=== PATIENT | male | born 1965 | race Caucasian/White ===

== ENCOUNTER 2017-01-26 14:18 | Emergency (ER) | payer MEDICAID ==
[2017-01-26 14:24] VITALS: RESP 18; TEMP 97.9
--- NOTE | 2017-01-26 15:57 | EDPHY ---
H & P Smoking Status: Former smoker Time Seen by Provider: 01/26/17 14:32 HPI/ROS: CHIEF COMPLAINT: Right ankle injury HISTORY OF PRESENT ILLNESS: 51-year-old male presents to the emergency department with injury to the right ankle. The patient was at home 2 days ago and stepped in a hole in the yd and somehow twisted his right foot and ankle. He has been having pain and swelling since that time. He has a previous right foot fracture injury. Denies any other trauma or injury. He did not hit his head or lose consciousness. ROS: Denies numbness or tingling in his toes, pain in his right calf, right knee or hip. (Kylah Santos) Past Medical/Surgical History: Previous right foot fracture, orthopedic surgery left wrist (Kylah Santos) Social History: (Kylah Santos) Physical Exam: On examination the patient has swelling noted diffusely to the right ankle. He has tenderness with palpation especially over the lateral malleolus. Nontender over the medial malleolus. No obvious ankle instability although this is difficult to test given swelling. Normal capillary refill. He does have ecchymosis noted both to the medial and lateral aspect of his foot. He has diffuse swelling to the foot as well however he has no pain with palpation over the metatarsals. He has limited dorsiflexion of the right ankle secondary to pain and swelling. His gait is not tested due to pain. Achilles tendon is intact. (Kylah Santos) Constitutional: Initial Vital Signs Temperature (C) 36.6 C 01/26/17 14:21 Heart Rate 89 01/26/17 14:21 Respiratory Rate 18 01/26/17 14:21 Blood Pressure 131/90 H 01/26/17 14:21 O2 Sat (%) 96 01/26/17 14:21 O2 Delivery Mode Room Air Allergies/Adverse Reactions: No Known Allergies Allergy (Verified 01/26/17 14:19) Home Medications: Medication Instructions Recorded Docusate Sodium [Colace 100 MG (*)] 100 mg PO TID #20 cap 08/23/14 Hydrocodone/APAP 5/325 [[place] 1 - 2 tab PO Q4-6PRN PRN #30 tab 08/23/14 5/325 (*)] oxyCODONE/APAP 5/325 [Percocet 1 - 2 tab PO Q4-6PRN PRN #30 tab 08/23/14325 (*)] Levothyroxine 01/26/17 Lipitor 01/26/17 Lisinopril 01/26/17 MDM/Departure - [facility] Imaging: I viewed and interpreted images myself - [facility] Imaging Results: Imaging Impressions Ankle X-Ray 01/26/17 14:53 Impression: Nondisplaced fracture through the inferior lateral malleolus with overlying soft tissue swelling and tibiotalar joint effusion. Foot X-Ray 01/26/17 14:53 Impression: Tibiotalar joint effusion. The nondisplaced fracture of the lateral malleolus is better visualized on the ankle images also obtained today. No other findings for acute fracture of the right foot. 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 (Kylah Santos) ED Course/Re-evaluation: 51-year-old male presents to the emergency department with right ankle injury. X-rays reveal distal fibular fracture. He was placed in Galvan boot and given orthopedic referral. Patient was given strict instructions to elevate his leg as much as possible to help relieve swelling. He was given a prescription for 10. Percocet per his request to help him sleep. (Kylah Santos) - Depart Disposition: Home, Routine, Self-Care Clinical Impression: Closed right ankle fracture Qualifiers: Encounter type: initial encounter Qualified Code(s): S82.891A - Other fracture of right lower leg, initial encounter for closed fracture Condition: Good Instructions: Ankle Fracture (ED) Additional Instructions: Galvan boot for comfort and support. Weightbear as tolerated, use crutches. Ibuprofen 600 mg every 8 hours as needed for pain. Follow up with orthopedic surgeon in 1 week to recheck. Elevate your foot as much as possible to help relieve swelling. Referrals: Edgar Ruggiero MD [Medical Doctor] - 5-7 days, call for appt. (Orthopedic surgeon on-call) Gera Hinojosa MD [Medical Doctor] - As per Instructions
--- NOTE | 2017-01-26 15:57 | EDPHY ---
H & P Smoking Status: Former smoker Time Seen by Provider: 01/26/17 14:32 HPI/ROS: CHIEF COMPLAINT: Right ankle injury HISTORY OF PRESENT ILLNESS: 51-year-old male presents to the emergency department with injury to the right ankle. The patient was at home 2 days ago and stepped in a hole in the yd and somehow twisted his right foot and ankle. He has been having pain and swelling since that time. He has a previous right foot fracture injury. Denies any other trauma or injury. He did not hit his head or lose consciousness. ROS: Denies numbness or tingling in his toes, pain in his right calf, right knee or hip. (Kylah Santos) Past Medical/Surgical History: Previous right foot fracture, orthopedic surgery left wrist (Kylah Santos) Social History: (Kylah Santos) Physical Exam: On examination the patient has swelling noted diffusely to the right ankle. He has tenderness with palpation especially over the lateral malleolus. Nontender over the medial malleolus. No obvious ankle instability although this is difficult to test given swelling. Normal capillary refill. He does have ecchymosis noted both to the medial and lateral aspect of his foot. He has diffuse swelling to the foot as well however he has no pain with palpation over the metatarsals. He has limited dorsiflexion of the right ankle secondary to pain and swelling. His gait is not tested due to pain. Achilles tendon is intact. (Kylah Santos) Constitutional: Initial Vital Signs Temperature (C) 36.6 C 01/26/17 14:21 Heart Rate 89 01/26/17 14:21 Respiratory Rate 18 01/26/17 14:21 Blood Pressure 131/90 H 01/26/17 14:21 O2 Sat (%) 96 01/26/17 14:21 O2 Delivery Mode Room Air Allergies/Adverse Reactions: No Known Allergies Allergy (Verified 01/26/17 14:19) Home Medications: Medication Instructions Recorded Docusate Sodium [Colace 100 MG (*)] 100 mg PO TID #20 cap 08/23/14 Hydrocodone/APAP 5/325 [[place] 1 - 2 tab PO Q4-6PRN PRN #30 tab 08/23/14 5/325 (*)] oxyCODONE/APAP 5/325 [Percocet 1 - 2 tab PO Q4-6PRN PRN #30 tab 08/23/14325 (*)] Levothyroxine 01/26/17 Lipitor 01/26/17 Lisinopril 01/26/17 MDM/Departure - [facility] [place] Imaging: I viewed and interpreted images myself - [facility] [place] Imaging Results: Imaging Impressions Ankle X-Ray 01/26/17 14:53 Impression: Nondisplaced fracture through the inferior lateral malleolus with overlying soft tissue swelling and tibiotalar joint effusion. Foot X-Ray 01/26/17 14:53 Impression: Tibiotalar joint effusion. The nondisplaced fracture of the lateral malleolus is better visualized on the ankle images also obtained today. No other findings for acute fracture of the right foot. 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 (Kylah Santos) ED Course/Re-evaluation: 51-year-old male presents to the emergency department with right ankle injury. X-rays reveal distal fibular fracture. He was placed in Galvan boot and given orthopedic referral. Patient was given strict instructions to elevate his leg as much as possible to help relieve swelling. He was given a prescription for 10. Percocet per his request to help him sleep. (Kylah Santos) - Depart Disposition: Home, Routine, Self-Care Clinical Impression: Closed right ankle fracture Qualifiers: Encounter type: initial encounter Qualified Code(s): S82.891A - Other fracture of right lower leg, initial encounter for closed fracture Condition: Good Instructions: Ankle Fracture (ED) Additional Instructions: Galvan boot for comfort and support. Weightbear as tolerated, use crutches. Ibuprofen 600 mg every 8 hours as needed for pain. Follow up with orthopedic surgeon in 1 week to recheck. Elevate your foot as much as possible to help relieve swelling. Referrals: Edgar Ruggiero MD [Medical Doctor] - 5-7 days, call for appt. (Orthopedic surgeon on-call) Gera Hinojosa MD [Medical Doctor] - As per Instructions
--- NOTE | 2017-01-26 15:57 | EDPHY ---
H & P Smoking Status: Former smoker Time Seen by Provider: 01/26/17 14:32 HPI/ROS: CHIEF COMPLAINT: Right ankle injury HISTORY OF PRESENT ILLNESS: 51-year-old male presents to the emergency department with injury to the right ankle. The patient was at home 2 days ago and stepped in a hole in the yd and somehow twisted his right foot and ankle. He has been having pain and swelling since that time. He has a previous right foot fracture injury. Denies any other trauma or injury. He did not hit his head or lose consciousness. ROS: Denies numbness or tingling in his toes, pain in his right calf, right knee or hip. (Kylah Santos) Past Medical/Surgical History: Previous right foot fracture, orthopedic surgery left wrist (Kylah Santos) Social History: (Kylah Santos) Physical Exam: On examination the patient has swelling noted diffusely to the right ankle. He has tenderness with palpation especially over the lateral malleolus. Nontender over the medial malleolus. No obvious ankle instability although this is difficult to test given swelling. Normal capillary refill. He does have ecchymosis noted both to the medial and lateral aspect of his foot. He has diffuse swelling to the foot as well however he has no pain with palpation over the metatarsals. He has limited dorsiflexion of the right ankle secondary to pain and swelling. His gait is not tested due to pain. Achilles tendon is intact. (Kylah Santos) Constitutional: Initial Vital Signs Temperature (C) 36.6 C 01/26/17 14:21 Heart Rate 89 01/26/17 14:21 Respiratory Rate 18 01/26/17 14:21 Blood Pressure 131/90 H 01/26/17 14:21 O2 Sat (%) 96 01/26/17 14:21 O2 Delivery Mode Room Air Allergies/Adverse Reactions: No Known Allergies Allergy (Verified 01/26/17 14:19) Home Medications: Medication Instructions Recorded Docusate Sodium [Colace 100 MG (*)] 100 mg PO TID #20 cap 08/23/14 Hydrocodone/APAP 5/325 [[place] 1 - 2 tab PO Q4-6PRN PRN #30 tab 08/23/14 5/325 (*)] oxyCODONE/APAP 5/325 [Percocet 1 - 2 tab PO Q4-6PRN PRN #30 tab 08/23/14325 (*)] Levothyroxine 01/26/17 Lipitor 01/26/17 Lisinopril 01/26/17 MDM/Departure - [facility] Imaging: I viewed and interpreted images myself - [facility] Imaging Results: Imaging Impressions Ankle X-Ray 01/26/17 14:53 Impression: Nondisplaced fracture through the inferior lateral malleolus with overlying soft tissue swelling and tibiotalar joint effusion. Foot X-Ray 01/26/17 14:53 Impression: Tibiotalar joint effusion. The nondisplaced fracture of the lateral malleolus is better visualized on the ankle images also obtained today. No other findings for acute fracture of the right foot. 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 (Kylah Santos) ED Course/Re-evaluation: 51-year-old male presents to the emergency department with right ankle injury. X-rays reveal distal fibular fracture. He was placed in Galvan boot and given orthopedic referral. Patient was given strict instructions to elevate his leg as much as possible to help relieve swelling. He was given a prescription for 10. Percocet per his request to help him sleep. (Kylah Santos) - Depart Disposition: Home, Routine, Self-Care Clinical Impression: Closed right ankle fracture Qualifiers: Encounter type: initial encounter Qualified Code(s): S82.891A - Other fracture of right lower leg, initial encounter for closed fracture Condition: Good Instructions: Ankle Fracture (ED) Additional Instructions: Galvan boot for comfort and support. Weightbear as tolerated, use crutches. Ibuprofen 600 mg every 8 hours as needed for pain. Follow up with orthopedic surgeon in 1 week to recheck. Elevate your foot as much as possible to help relieve swelling. Referrals: Edgar Ruggiero MD [Medical Doctor] - 5-7 days, call for appt. (Orthopedic surgeon on-call) Gera Hinojosa MD [Medical Doctor] - As per Instructions
[2017-01-26 16:10] VITALS: BP 112/88; PULSE 85; O2SAT 94
== END 2017-01-26 16:10 | disposition home or self-care (01) ==
DX: S82.891A Other fracture of right lower leg, initial encounter for closed fracture (principal); Z87.891 Personal history of nicotine dependence; X58.XXXA Exposure to other specified factors, initial encounter
CPT/HCPCS: L4386

== ENCOUNTER 2017-01-27 15:47 | Emergency (ER) | payer MEDICAID ==
[2017-01-27 15:58] VITALS: BP 126/103; PULSE 87; RESP 16; TEMP 97.9; O2SAT 97
--- NOTE | 2017-01-27 16:29 | EDPHY ---
H & P Time Seen by Provider: 01/27/17 16:03 HPI/ROS: CHIEF COMPLAINT: Right ankle pain HISTORY OF PRESENT ILLNESS: Patient is a 51-year-old male who presents emergency department with right ankle pain. The patient was seen in the emergency department yesterday for the same. His pain is persistent. He describes it is moderate to severe. He has no numbness or tingling. He made an appointment to follow up with Dr. Ruggiero. Patient has been using his Arnulfo boot but no crutches. REVIEW OF SYSTEMS: Negative Past Medical/Surgical History: Noncontributory Smoking Status: Former smoker Physical Exam: General Appearance: Alert and no distress. Head: Pupils equal. Normal. Respiratory: No respiratory distress. Cardiac: regular rate and rhythm. Extremities: Mild swelling at the right ankle. There is also swelling inferior to the lateral malleolus and medial malleolus. The compartment is soft. Neurovascular intact distally. No cords or Homans sign Skin: No rashes or lesions. Neuro: Alert. Normal mood and affect. Constitutional: Initial Vital Signs Temperature (C) 36.6 C 01/27/17 15:56 Heart Rate 87 01/27/17 15:56 Respiratory Rate 16 01/27/17 15:56 Blood Pressure 126/103 H 01/27/17 15:56 O2 Sat (%) 97 01/27/17 15:56 O2 Delivery Mode Room Air Allergies/Adverse Reactions: No Known Allergies Allergy (Verified 01/27/17 15:55) Home Medications: Medication Instructions Recorded oxyCODONE/APAP 5/325 [Percocet 1 - 2 tab PO Q4-6PRN PRN #30 tab 08/23/14 5/325 (*)] Levothyroxine 01/26/17 Lisinopril 01/26/17 Ibuprofen 600 mg PO Q6 #15 tablet 01/27/17 oxyCODONE/APAP 5/325 [Percocet 1 - 2 tab PO Q4PRN PRN #11 tab 01/27/17 5/325 (*)] Medical Decision Making ED Course/Re-evaluation: In the emergency department I discussed possible etiologies with the patient. Patient was instructed uses Arnulfo boot. He was given crutches will be weight- bearing as tolerated. Patient will keep his follow-up with Dr. Ruggiero. He was given a prescription for Percocet. He was instructed use ibuprofen as well as the Percocet. Differential Diagnosis: My differential includes but is not limited to fracture, dislocation, sprain, contusion Departure - Departure Disposition: Home, Routine, Self-Care Clinical Impression: Closed right ankle fracture Condition: Good Instructions: Ankle Fracture (ED) Additional Instructions: Use your same some boot. Use the crutches for comfort. Keep your foot elevated as much as possible. Use both ibuprofen and Percocet for breakthrough pain. Referrals: Edgar Ruggiero MD [Medical Doctor] - 3-4 days, if not improved Prescriptions: Ibuprofen 600 mg PO Q6 #15 tablet oxyCODONE/APAP 5/325 [Percocet 5/325 (*)] 1 - 2 tab PO Q4PRN PRN #11 tab PRN Reason: For Moderate To Severe Pain
== END 2017-01-27 16:44 | disposition home or self-care (01) ==
DX: S82.891D Other fracture of right lower leg, subsequent encounter for closed fracture with routine healing (principal); Z87.891 Personal history of nicotine dependence; X58.XXXD Exposure to other specified factors, subsequent encounter

== ENCOUNTER 2018-06-27 11:15 | Day surgery (SDC) | payer MEDICAID ==
--- NOTE | 2018-06-27 11:56 | EDPHY ---
H & P Stated Complaint: bleeding hemorrhoids Time Seen by Provider: 06/27/18 11:25 HPI/ROS: CHIEF COMPLAINT: "I have a hemorrhoid" HISTORY OF PRESENT ILLNESS: 52-year-old male developed a thrombosed hemorrhoid which was initially seen by his primary care provider on Wednesday (today is Wednesday ). He had the thrombus excised at that time. He was then seen again Wednesday morning because of reaccumulation of clot. He had excision at that time as well.. He was then seen again Wednesday afternoon and had the area excised again. He develops continued symptoms in continued use accumulation of thrombus in blood. His primary care provider recommend he follow up with surgery today however due to insurance and mailing address issues was unable to be seen in the office and therefore told to go to the ER. Last po intake dinner last night PRIMARY CARE PROVIDER: REVIEW OF SYSTEMS: 10 systems reviewed and negative with the exception of the elements mentioned in the history of present illness PAST MEDICAL & SURGICAL HISTORY: No pertinent medical or surgical history SOCIAL HISTORY: Nonsmoker PHYSICAL EXAM (Prior to examination, patient consented to physical exam, hands were washed and my usual and customary physical exam procedures followed) 1) GENERAL: Well-developed, well-nourished, alert and oriented. Appears uncomfortable 2) HEAD: Normocephalic, atraumatic 3) HEENT: Pupils equal, round, reactive to light bilaterally. Sclera anicteric. 4) NECK: Full range of motion, no meningeal signs. 5) LUNGS: Clear auscultation bilaterally, no wheezes, no rhonchi, no retractions. 6) HEART: Regular rate and rhythm, no murmur, no heave, no gallop. 7) ABDOMEN: No guarding, no rebound, no focal tenderness,, 8) MUSCULOSKELETAL: Moving all extremities, no focal areas of tenderness, no obvious trauma. No peripheral edema or discoloration. 9) BACK: , no visual or palpable abnormality. 10) SKIN: No rash, no petechiae. 11) : At the 8:00 position the perianal region thrombosed hemorrhoid measuring 6 cm x 4 cm with incision noted. No active bleeding.. DIFFERENTIAL DIAGNOSIS: In no particular order including but not limited to thrombosed hemorrhoid, abscess, non thrombosed hemorrhoid - Personal History Current Tetanus/Diphtheria Vaccine: Yes Current Tetanus Diphtheria and Acellular Pertussis (TDAP): Yes Tetanus Vaccine Date: 2015 - Medical/Surgical History Hx Asthma: No Hx Chronic Respiratory Disease: No Hx Diabetes: No Hx Cardiac Disease: No Hx Renal Disease: No Hx Cirrhosis: No Hx Alcoholism: No Hx HIV/AIDS: No Hx Splenectomy or Spleen Trauma: No Other PMH: HYPERLIPIDEMIA, HTN, HYPOTHYROID. L WRIST SURGERY, NECK SURGERY, COLON CANCER - Social History Smoking Status: Former smoker Constitutional: Initial Vital Signs Temperature (C) 36.5 C 06/27/18 11:19 Heart Rate 88 06/27/18 11:19 Respiratory Rate 18 06/27/18 11:19 Blood Pressure 129/99 H 06/27/18 11:19 O2 Sat (%) 97 06/27/18 11:19 O2 Delivery Mode Room Air Allergies/Adverse Reactions: No Known Allergies Allergy (Verified 01/27/17 15:55) Home Medications: Medication Instructions Recorded oxyCODONE/APAP 5/325 [Percocet 1 - 2 tab PO Q4-6PRN PRN #30 tab 08/23/14 5/325 (*)] Levothyroxine 01/26/17 Lisinopril 01/26/17 Ibuprofen 600 mg PO Q6 #15 tablet 01/27/17 oxyCODONE/APAP 5/325 [Percocet 1 - 2 tab PO Q4PRN PRN #11 tab 01/27/17 5/325 (*)] Medical Decision Making ED Course/Re-evaluation: 12:03 p.m.: Consultation with Dr. Brooks will come to the ER to evaluate patient. Patient remains NPO since last night. 12:55 p.m.: Dr. Brooks has evaluated the patient, plan on taking the patient to the operating room for hemorrhoidectomy and then will plan discharge home. Care of patient under supervision of secondary supervising physician Dr Martinez with whom I discussed case. - Data Points Laboratory Results: Laboratory Results 06/27/18 13:15 06/27/18 13:15 06/27/18 06/27/18 06/27/18 13:15 13:15 13:15 WBC 5.83 10^3/uL 10^3/uL (3.80-9.50) RBC 5.54 10^6/uL 10^6/uL (4.40-6.38) Hgb 16.4 g/dL g/dL (13.7-17.5) Hct 48.5 % % (40.0-51.0) MCV 87.5 fL fL (81.5-99.8) MCH 29.6 pg pg (27.9-34.1) MCHC 33.8 g/dL g/dL (32.4-36.7) RDW 12.8 % % (11.5-15.2) Plt Count 238 10^3/uL 10^3/uL (150-400) MPV 9.7 fL fL (8.7-11.7) Neut % (Auto) 63.4 % % (39.3-74.2) Lymph % (Auto) 24.7 % % (15.0-45.0) [place] % (Auto) 6.5 % % (4.5-13.0) Eos % (Auto) 3.9 % % (0.6-7.6) Baso % (Auto) 1.2 % % (0.3-1.7) Nucleat RBC Rel Count 0.0 % % (0.0-0.2) Absolute Neuts (auto) 3.69 10^3/uL 10^3/uL (1.70-6.50) Absolute Lymphs (auto) 1.44 10^3/uL 10^3/uL (1.00-3.00) Absolute Monos (auto) 0.38 10^3/uL 10^3/uL (0.30-0.80) Absolute Eos (auto) 0.23 10^3/uL 10^3/uL (0.03-0.40) Absolute Basos (auto) 0.07 10^3/uL 10^3/uL (0.02-0.10) Absolute Nucleated RBC 0.00 10^3/uL 10^3/uL (0-0.01) Immature Gran % 0.3 % % (0.0-1.1) Immature Gran # 0.02 10^3/uL 10^3/uL (0.00-0.10) PT 11.8 SEC L SEC (12.0-15.0) INR 0.90 (0.83-1.16) APTT 27.6 SEC SEC (23.0-38.0) Sodium 141 mEq/L mEq/L (135-145) Potassium 4.1 mEq/L mEq/L (3.5-5.2) Chloride 107 mEq/L mEq/L (97-110) Carbon Dioxide 26 mEq/l mEq/l (22-31) Anion Gap 8 mEq/L mEq/L (6-14) BUN 12 mg/dL mg/dL (7-23) Creatinine 0.9 mg/dL mg/dL (0.7-1.3) Estimated GFR > 60 Glucose 88 mg/dL mg/dL (70-100) Calcium 9.6 mg/dL mg/dL (8.5-10.4) Medications Given: Discontinued Medications Sodium Chloride (Ns) 1,000 mls @ 0 mls/hr IV ONCE ONE PRN Reason: Wide Open Stop: 06/27/18 12:56 Last Admin: 06/27/18 13:11 Dose: 1,000 mls Departure - Departure Disposition: Home, Routine, Self-Care Clinical Impression: Thrombosed external hemorrhoid Condition: Good Referrals: Gera Ocampo MD [Primary Care Provider] - As per Instructions
[2018-06-27] MEDS ORDERED: NS 1,000 ML IV ONE (12:55)
[2018-06-27 13:27] LABS: PLATELET COUNT 238 10^3/uL (150-400)
[2018-06-27 13:34] LABS: INR 0.9 (0.83-1.16); PROTIME(PATIENT) 11.8 SEC (12.0-15.0)
--- NOTE | 2018-06-27 14:51 | GHP ---
[f rep st] PREOP HISTORY AND PHYSICAL DATE OF ADMISSION: 06/27/2018 HISTORY OF PRESENT ILLNESS: The patient is a 52-year-old male who has developed a prolapsed swollen external hemorrhoid, which has been I and D'd x3 with no improvement. He is admitted at this time fo r formal hemorrhoidectomy. Risks and options have been fully discussed. He wishes to proceed. He d oes not usually have major constipation problems or any other previous hemorrhoidal troubles, until j ust recently he had a bout of diarrhea with over 15 bowel movements that caused this to flare up. He understands, accepts the risks of surgery, and requests that we proceed. REVIEW OF SYSTEMS: Negative on a 10-point review. SOCIAL HISTORY: Reveals he is a nonsmoker. PAST MEDICAL HISTORY: Includes ORIF of his wrist, neck fracture ORIF, hyperlipidemia, hypertension, hypothyroidism. PRESENT MEDICATIONS: Something for high blood pressure, which he has not been taking and does not kn ow the name of, levothyroxine, ibuprofen, lisinopril, and oxycodone. ALLERGIES: None. PHYSICAL EXAMINATION: GENERAL: Reveals an alert, cooperative 52-year-old male in no acute distress. HEAD AND NECK: Reveals no icterus, adenopathy, or oral lesions. NECK: Supple with full range of motion, full pulses. He is nonicteric. CHEST: Clear to auscultation and percussion. CARDIAC: Reg ular rhythm without murmurs. ABDOMEN: Soft without masses, organomegaly, or bruits. He has positiv e bowel sounds. There are no hernias. EXTREMITIES: Reveal full range of motion, full pulses. BACK : Nontender with no palpable abnormalities. GENITALIA: Normal. SKIN: Reveals no rashes or lesions . RECTAL: Reveals a prolapsed full external hemorrhoid, which has been recently lanced. This is at the 5 o'clock position. He is too tender for internal exam at this point. IMPRESSION: Thrombosed external hemorrhoid. PLAN: Hemorrhoidectomy. Risks and options have been fully discussed, and we will arrange to do that today since he has been n.p.o. /[id number]/MODL
[2018-06-27] MEDS ORDERED: LR 1,000 ML IV ONE (15:47)
[2018-06-27] MEDS ORDERED: cefOXitin SODIUM 2 GM in NS 100 ML IV ONE (17:17)
[2018-06-27] MEDS ORDERED: MIDAZOLAM 2 MG/2 ML VIAL IVP ONE (17:31)
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
[2018-06-27] MEDS ORDERED: PROPOFOL/EMULSION 500 MG/50 ML BOTTLE IV ONE (17:40)
[2018-06-27] MEDS ORDERED: fentaNYL 250 MCG/5 ML INJ ONE (17:43)
[2018-06-27] MEDS ORDERED: ONDANSETRON 4 MG/2 ML VIAL ONE (17:51)
[2018-06-27] MEDS ORDERED: DEXAMETHASONE 4 MG/ML VIAL ONE (17:52)
[2018-06-27] MEDS ORDERED: BUPIVACAINE/EPI 0.5% 30 ML SDV ONE (18:18)
[2018-06-27] MEDS ORDERED: oxyCODONE IR 5 MG TAB PO PRN (18:55)
[2018-06-27] MEDS ORDERED: fentaNYL 100 MCG/2 ML INJ IVP PRN (18:55)
[2018-06-27] MEDS ORDERED: LABETALOL HCL 5 MG/ML 20 ML MDV IVP PRN (18:55)
[2018-06-27] MEDS ORDERED: NALOXONE HCL 0.4 MG/ML INJ IVP PRN (18:55)
[2018-06-27] MEDS ORDERED: HYDROmorphONE/DILAUDID 1 MG/ML INJ IVP PRN (18:55)
[2018-06-27] MEDS ORDERED: ONDANSETRON 4 MG/2 ML VIAL IVP PRN ×2 (18:55→19:37)
--- NOTE | 2018-06-27 18:56 | POSTANESTH ---
Post Anesthetic Evaluation Cardiovascular Status: Normal, Stable Respiratory Status: Normal, Stable Level of Consciousness/Mental Status: Can Participate in Eval Pain Control: Adequate, Prn Tx Ordered Nausea/Vomiting Control: Adequate, Prn Tx Ordered Complications Possibly Related to Anesthesia: None Noted
--- NOTE | 2018-06-27 19:33 | POSTOPPROG ---
Post Op Note Date of Operation: 06/27/18 Surgeon: Gagan Brooks Anesthesiologist: GARCIA Anesthesia: GET(General Endotracheal) Pre-op Diagnosis: THROMBOSED Post-op Diagnosis: SAME Indication: PAIN Procedure: EXAM UNDER ANESTHESIA WITH HEMORRHOIDECTOMY AND LIGATION OF INTERNAL HEMORR Findings: LARGE THROMBOSED SWOLLEN EXTERNAL HEMORRHOID AT THE 5:00 POSITION/ INTERNAL Inf/Abcess present in the surg proc area at time of surgery?: Yes Depth: Organ Space EBL: Minimal Complications: NONE Bowel Protocol: N/A Clean Closure Performed: N/A Specimen(s): HEMORRHOIDS
[2018-06-27] MEDS ORDERED: KETOROLAC 30 MG/1 ML SDV IVP ONE (19:37)
[2018-06-27] MEDS ORDERED: KETOROLAC 30 MG/1 ML SDV ONE (20:13)
[2018-06-27 21:39] VITALS: BP 145/86
[2018-06-28] MEDS ORDERED: KETOROLAC 15 MG/1 ML SDV IVP SCH (02:00)
--- NOTE | 2018-07-02 15:22 | GOP ---
[f rep st] OPERATIVE REPORT DATE OF OPERATION: 06/27/2018 SURGEON: Gagan Brooks MD ANESTHESIA: General endotracheal anesthesia. ANESTHESIOLOGIST: Dr. Lees. PREOPERATIVE DIAGNOSIS: Thrombosed prolapsed external hemorrhoid. POSTOPERATIVE DIAGNOSIS: Thrombosed prolapsed external hemorrhoid. PROCEDURE PERFORMED: Exam under anesthesia with hemorrhoidectomy and ligation of internal hemorrhoid s. FINDINGS: Patient was found to have a large thrombosed swollen external hemorrhoid at the 5 o'clock position. He had some grade 2-3 internal hemorrhoids at the 7 and 11 o'clock positions. DESCRIPTION OF PROCEDURE: Patient taken to the operating room where he received a satisfactory gener al endotracheal anesthesia by Dr. Lees. He was placed in the lithotomy position, prepped and drape d in the usual sterile fashion. The anus was infiltrated with 0.5% Marcaine. The anus was gently di lated to 3 fingerbreadths. A large prolapsing thrombosed external hemorrhoid was excised with ellipt ical skin and mucosal incision with it elevated up off the sphincter muscle, and then the attachments were divided with the Harmonic scalpel and the specimen was removed. The mucosa was approximated wi th a running 3-0 Vicryl suture after mobilization of the redundant mucosa. The wound was infiltrated with 0.5% Marcaine. Two other areas of internal hemorrhoids at the 7 o'clock and 11 o'clock positio n were then isolated and rubber-band ligated without difficulties. Wounds were further infiltrated w ith 0.5% Marcaine and then dressed. He was taken to recovery room in good condition. There were no complications. /[id number]/MODL
== END 2018-06-27 20:20 | disposition home or self-care (01) ==
LOC: FSGY 14:52
PROVIDERS: ATTEND Surgery
PROC: 06LY0CC Occlusion of Hemorrhoidal Plexus with Extraluminal Device, Open Approach (ICD-10-PCS; principal; 2018-06-27 16:00)
DX: K64.8 Other hemorrhoids (principal); E78.5 Hyperlipidemia, unspecified; I10 Essential (primary) hypertension; E03.9 Hypothyroidism, unspecified
CPT/HCPCS: J0694; J1100; J1885; J2250; J2405; J2704; J3010